=== PATIENT | female | born 1980 | race African-American/Black ===

== ENCOUNTER 2016-06-05 02:30 | Emergency (ER) | payer SELFPAY ==
[~2016-06-05] VITALS: Ht 162.6 cm; Wt 83.9 kg
[2016-06-05 02:37] VITALS: BP 123/59
[2016-06-05] MEDS ORDERED: NAPR500T3 PO (03:23)
--- NOTE | 2016-06-05 03:23 | PHYS DOC ---
Past Medical History Past Medical History: No Pertinent History Past Surgical History: No Surgical History Alcohol Use: Occasionally Drug Use: None Adult General Chief Complaint Chief Complaint: KNEE SWELLING HPI HPI 35-year-old female who is presenting with atraumatic right knee swelling she states her last several days. She does states she has some moderate amount of swelling to the area but denies any recent trauma. She states the pain is worse with ambulation. She denies any fever or chills. She denies any nausea or vomiting. She denies any history of gout. She denies any warmth to the area. Review of Systems Review of Systems Constitutional: Denies fever or chills [] Eyes: Denies change in visual acuity, redness, or eye pain [] HENT: Denies nasal congestion or sore throat [] Respiratory: Denies cough or shortness of breath [] Cardiovascular: No additional information not addressed in HPI [] GI: Denies abdominal pain, nausea, vomiting, bloody stools or diarrhea [] : Denies dysuria or hematuria [] Musculoskeletal: Denies back pain, has joint pain [] Integument: Denies rash or skin lesions [] Neurologic: Denies headache, focal weakness or sensory changes [] Endocrine: Denies polyuria or polydipsia [] Current Medications Current Medications Current Medications Medications (Trade) Dose Ordered Sig/[facility] Start Time Stop Time Status Last Admin Dose Admin Ketorolac Tromethamine (Toradol Im) 60 mg 1X ONCE 06/05/16 03:30 06/05/16 03:31 DC 06/05/16 03:38 60 MG Allergies Allergies Allergies Coded Allergies Type Severity Reaction Last Updated Verified No Known Drug Allergies 06/05/16 No Physical Exam Physical Exam Constitutional: Well developed, well nourished, no acute distress, non-toxic appearance. [] HENT: Normocephalic, atraumatic, bilateral external ears normal, oropharynx moist, no oral exudates, nose normal. [] Eyes: PERRLA, EOMI, conjunctiva normal, no discharge. [] Neck: Normal range of motion, no tenderness, supple, no stridor. [] Cardiovascular:Heart rate regular rhythm, no murmur [] Lungs & Thorax: Bilateral breath sounds clear to auscultation [] Abdomen: Bowel sounds normal, soft, no tenderness, no masses, no pulsatile masses. [] Skin: Warm, dry, no erythema, no rash. [] Back: No tenderness, no CVA tenderness. [] Extremities: Moderate tenderness and swelling is noted to the right knee, there is no warmth or erythema, no cyanosis, no clubbing, ROM intact, no edema. [] Neurologic: Alert and oriented X 3, normal motor function, normal sensory function, no focal deficits noted. [] Psychologic: Affect normal, judgement normal, mood normal. [] Current Patient Data Vital Signs Vital Signs Date Time Temp Pulse Resp B/P Pulse Ox O2 Delivery O2 Flow Rate FiO2 06/05/16 02:37 98.5 76 16 98 Room Air 98.5 EKG EKG [] Radiology/Procedures Radiology/Procedures [] Course & Med Decision Making Course & Med Decision Making Pertinent Labs and Imaging studies reviewed. (See chart for details) 35 yo female with atraumatic right knee swelling will be given an Pedrito wrap and instructions to keep the extremity elevated. I will place the patient on naproxen 500 mg twice daily with instructions to avoid any stress activities and keep the extremity elevated and iced. A work note will be provided. I instructed to return to ER if her right knee swelling does not improve in the next several days. Dragon Disclaimer Dragon Disclaimer This electronic medical record was generated, in whole or in part, using a voice recognition dictation system. Departure Departure Impression: Primary Impression: Pain and swelling of right knee Disposition: 01 HOME, SELF-CARE Admitting Physician: Other Condition: STABLE Patient Instructions: Knee Effusion Additional Instructions: Please follow up with your primary doctor in the next 2-3 days regarding your recent knee pain and swelling. Take your medication as prescribed. Keep your knee wrapped and elevated and use ice to the right knee to reduce any swelling. Scripts Naproxen 500 Mg [id number] Mg PO BID #10 Prov:MAR WEI DO 06/05/16 MAR WEI DO Jun 05, 2016 03:23
[2016-06-05] MEDS ORDERED: KETOROLAC TROMETHAMINE 60 MG/2 ML INJ. IM ONE (03:30)
== END 2016-06-05 03:48 | disposition home or self-care (01) ==
LOC: ER 02:30
DX: M79.89 Other specified soft tissue disorders (principal); M25.561 Pain in right knee
CPT/HCPCS: 96372; 99283; J1885

== ENCOUNTER 2016-10-11 08:47 | Emergency (ER) | payer SELFPAY ==
[~2016-10-11] VITALS: Ht 162.6 cm; Wt 83.9 kg
[~2016-10-11 08:47] MED LIST: NAPR500T3 PO
[2016-10-11 08:58] VITALS: BP 143/92
--- NOTE | 2016-10-11 09:34 | ED.ADGEN ---
Past Medical History Past Medical History: No Pertinent History Past Surgical History: No Surgical History Alcohol Use: Occasionally Drug Use: None Adult General Chief Complaint Chief Complaint: DENTAL PROBLEM HPI HPI Patient is a 35 year old female who presents with left upper posterior dental pain secondary to dental fracture and caries. Patient reports persistent pain and swelling and throbbing wrist in the evening. Pain is rated moderate to severe and is minimally improved with ibuprofen. She is currently awaiting dental appointment in the next 2 weeks. She denies fever, chills, dysphonia, dysphagia, trismus or drooling. No other acute symptoms or complaints. Review of Systems Review of Systems Review symptoms as per history of present illness. All other review symptoms are negative. Allergies Allergies Allergies Coded Allergies Type Severity Reaction Last Updated Verified No Known Drug Allergies 06/05/16 No Physical Exam Physical Exam Constitutional: Well developed, well nourished, no acute distress, non-toxic appearance. HENT: Normocephalic, atraumatic, bilateral external ears normal, left upper sternal molar erosion/fracture with tenderness. No appreciated soft tissue swelling. No hoarseness drooling, trismus or pooling of secretions [] Eyes: PERRLA, EOMI, conjunctiva normal, no discharge. [] Neck: Normal range of motion, no tenderness, supple, no stridor. [] Psychologic: Affect normal, judgement normal, mood normal. [] Current Patient Data Vital Signs Vital Signs Date Time Temp Pulse Resp B/P (MAP) Pulse Ox O2 Delivery O2 Flow Rate FiO2 10/11/16 08:58 98.4 64 20 100 Room Air 98.4 EKG EKG [] Radiology/Procedures Radiology/Procedures [] Course & Med Decision Making Course & Med Decision Making Pertinent Labs and Imaging studies reviewed. (See chart for details) [Dental pain secondary to dental caries with fracture. Recommend PCP follow up. ] Dragon Disclaimer Dragon Disclaimer This electronic medical record was generated, in whole or in part, using a voice recognition dictation system. YANELI LAI DO Oct 11, 2016 09:34
== END 2016-10-11 09:25 | disposition home or self-care (01) ==
LOC: ER 08:47
DX: S02.5XXA Fracture of tooth (traumatic), initial encounter for closed fracture (principal); K02.9 Dental caries, unspecified; K08.89 Other specified disorders of teeth and supporting structures
CPT/HCPCS: 99283

== ENCOUNTER 2018-09-22 05:13 | Emergency (ER) | payer BC, OTHER ==
[~2018-09-22] VITALS: Ht 162.6 cm; Wt 81.6 kg
[~2018-09-22 05:13] MED LIST changes: +NAPR-514 PO; -NAPR500T3 PO
[2018-09-22 05:15] VITALS: BP 136/95
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
[2018-09-22] MEDS ORDERED: DIPHTH,PERTUSS(ACELL),TET TOX 0.5 ML DISP.SYRIN. VAX IM ONE (06:15)
== END 2018-09-22 05:55 | disposition home or self-care (01) ==
LOC: ER 05:13
DX: S70.351A Superficial foreign body, right thigh, initial encounter (principal); F10.20 Alcohol dependence, uncomplicated; Y90.9 Presence of alcohol in blood, level not specified; X58.XXXA Exposure to other specified factors, initial encounter; Y93.89 Activity, other specified; Y92.89 Other specified places as the place of occurrence of the external cause; Y99.8 Other external cause status
CPT/HCPCS: 10120; 90471; 90715; 99284

== ENCOUNTER 2020-06-28 10:23 | Emergency (ER) | payer BC ==
[~2020-06-28] VITALS: Ht 162.6 cm; Wt 92.0 kg
[2020-06-28 10:55] VITALS: BP 134/95
[2020-06-28] MEDS ORDERED: AMOX500C PO (10:59)
[2020-06-28] MEDS ORDERED: HYDR-2761 PO (10:59)
--- NOTE | 2020-06-28 10:59 | PHYS DOC ---
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 She states that she has no dental pain but it is very painful to chew. Patient states this is what happened to the other side of her mouth. She states that she is going to call [facility] which did her other dental surgery. Patient denies ear pain, headache, fever, nausea, vomiting, chills, nasal congestion. Patient has a history of smoking. Rates her pain an 8 out of 10. (RANDAL RUSSELL MACHINE REBUILDER) Review of Systems: Review of Systems: Constitutional: Denies fever or chills. [] Eyes: Denies change in visual acuity. [] HENT: Denies nasal congestion or sore throat. [] Respiratory: Denies cough or shortness of breath. [] Cardiovascular: Denies chest pain or edema. [] GI: Denies abdominal pain, nausea, vomiting, bloody stools or diarrhea. [] : Denies dysuria. [] Musculoskeletal: Denies back pain or joint pain. [] Integument: Denies rash. [] Neurologic: Denies headache, focal weakness or sensory changes. [] Endocrine: Denies polyuria or polydipsia. [] Lymphatic: Denies swollen glands. [] Psychiatric: Denies depression or anxiety. [] (RANDAL RUSSELL MACHINE REBUILDER) Heart Score: C/O Chest Pain: No Risk Factors: Risk Factors: DM, Current or recent (<one month) smoker, HTN, HLP, family history of CAD, obesity. Risk Scores: Score 0 - 3: 2.5% MACE over next 6 weeks - Discharge Home Score 4 - 6: 20.3% MACE over next 6 weeks - Admit for Clinical Observation Score 7 - 10: 72.7% MACE over next 6 weeks - Early Invasive Strategies (RANDAL RUSSELL MACHINE REBUILDER) Allergies: Allergies: Allergies Coded Allergies Type Severity Reaction Last Updated Verified No Known Drug Allergies 06/05/16 No (RANDAL RUSSELL APRN) Physical Exam: PE: Constitutional: Well developed, well nourished, no acute distress, non-toxic appearance. [] HENT: Normocephalic, atraumatic, bilateral external ears normal, oropharynx moist, no oral exudates, nose normal. Dental caries. Small hard abscess can be felt with tenderness to the inside of the mucosa on the right lower side. Right-sided 1+ facial swelling. [] Eyes: PERRLA, EOMI, conjunctiva normal, no discharge. [] Neck: Normal range of motion, no tenderness, supple, no stridor. [] Cardiovascular:Heart rate regular rhythm, no murmur [] Lungs & Thorax: Bilateral breath sounds clear to auscultation [] Abdomen: Bowel sounds normal, soft, no tenderness, no masses, no pulsatile masses. [] Skin: Warm, dry, no erythema, no rash. [] Back: No tenderness, no CVA tenderness. [] Extremities: No tenderness, no cyanosis, no clubbing, ROM intact, no edema. [] Neurologic: Alert and oriented X 3, normal motor function, normal sensory function, no focal deficits noted. [] Psychologic: Affect normal, judgement normal, mood normal. [] (RANDAL RUSSELL APRN) EKG: EKG: [] (RANDAL RUSSELL APRN) Radiology/Procedures: Radiology/Procedures: [] (RANDAL RUSSELL APRN) Course & Med Decision Making: Course & Med Decision Making Pertinent Labs and Imaging studies reviewed. (See chart for details) See HPI. Alert and oriented x4. Ambulatory with steady gait. Speaks in full clear sentences. No trismus. Throat is pink without exudates or swelling. No tenderness to the outside of the neck or swelling. Patient is swallowing all fluids. There is tenderness and a small pea-sized hard area that can be filled inside the patient's inner mucosa of her mouth of the bottom right side. Patient does have some lower dental caries on that side. [] (RANDAL RUSSELL APRN) Dragon Disclaimer: Dragon Disclaimer: This electronic medical record was generated, in whole or in part, using a voice recognition dictation system. (RANDAL RUSSELL MACHINE REBUILDER) Departure Departure Impression: Primary Impression: Pain, dental Additional Impression: Abscess Disposition: HOME / SELF CARE / HOMELESS Condition: STABLE Patient Instructions: Dental Abscess, Dental Caries Additional Instructions: Follow up with dentist as soon as possible. Medication as prescribed and with food. Remember the medication will make you sleepy so do not drink alcohol or drive while on the medication. Scripts Hydrocodone Bit/Acetaminophen (HYDROCODONE-APAP 5-325 ) 1 Tab Tablet 1 TAB PO PRN Q6HRS PRN for PAIN, #10 TAB 0 Refills Prov: RANDAL RUSSELL APRN 06/28/20 Amoxicillin (AMOXICILLIN) 500 Mg Capsule 1 CAP PO BID, #20 CAP Prov: RANDAL RUSSELL APRN 06/28/20 Attending Signature Attending Signature I have participated in the care of this patient and I have reviewed and agree with all pertinent clinical information above including history, exam, and recommendations. (CUBA LUCIANO MD) RANDAL RUSSELL APRN Jun 28, 2020 10:59 CUBA LUCIANO MD Jun 29, 2020 07:21
== END 2020-06-28 11:29 | disposition home or self-care (01) ==
LOC: ER 10:23
DX: K04.7 Periapical abscess without sinus (principal); K08.89 Other specified disorders of teeth and supporting structures; R60.0 Localized edema; R68.84 Jaw pain; F17.200 Nicotine dependence, unspecified, uncomplicated; F12.90 Cannabis use, unspecified, uncomplicated; F10.10 Alcohol abuse, uncomplicated
CPT/HCPCS: 99283